=== PATIENT | male | born 1950 | race Hispanic/Latino ===

== ENCOUNTER 2016-09-07 14:34 | Emergency (ER) | payer BC, MEDICARE ==
[2016-09-07 15:31] VITALS: BP 136/86
[2016-09-07 15:55] LABS: Basophils % (Auto) 0.3 % (0.0-1.8); Eosinophils % (Auto) 4.4 % (0.0-4.3); Hematocrit 40.5 % (35.5-45.6); Hemoglobin 13.7 gm/dl (11.8-15.2); Mean Corpuscular HGB Conc 34 % (32-34); Mean Corpuscular Hemoglobin 30 pg (28-32); Mean Corpuscular Volume 89 fl (84-94); Platelet Count 188 K/mm3 (140-440); Red Blood Count 4.55 M/mm3 (3.65-5.03); White Blood Count 10.7 K/mm3 (4.5-11.0)
[2016-09-07 16:07] LABS: Creatine Kinase MB 1.8 ng/mL (0.0-4.0)
[2016-09-07 16:08] LABS: Anion Gap 18 mmol/L; BUN/Creatinine Ratio 13.33; Blood Urea Nitrogen 12 mg/dL (9-20); Calcium 9.1 mg/dL (8.4-10.2); Carbon Dioxide 25 mmol/L (22-30); Chloride 103.7 mmol/L (98-107); Creatine Kinase 78 units/L (55-170); Glucose 103 mg/dL (75-100); Potassium 4.7 mmol/L (3.6-5.0); Sodium 142 mmol/L (137-145)
[2016-09-07 16:30] LABS: Bilirubin,Urine NEG (Negative); Blood,Urine NEG (Negative); Ketones,Urine 20 mg/dL (Negative); Leukocyte Esterase,Urine NEG (Negative); Mucus,Urine FEW /HPF; Nitrite,Urine NEG (Negative); Urobilinogen,Urine < 2.0 mg/dL (<2.0); WBC,Urine < 1.0 /HPF (0.0-6.0)
== END 2016-09-07 23:45 | disposition left against medical advice (07) ==
LOC: ED 14:34
DX: R42 Dizziness and giddiness (principal); R11.2 Nausea with vomiting, unspecified; Z53.21 Procedure and treatment not carried out due to patient leaving prior to being seen by health care provider
CPT/HCPCS: 36415; 80048; 81001; 82550; 82553; 82962; 84484; 85025; 93005; 93010

== ENCOUNTER 2017-03-18 09:44 | Emergency (ER) | payer MEDICARE ==
[2017-03-18 10:44] VITALS: BP 112/77
--- NOTE | 2017-03-18 11:53 | XRay Report ---
RIGHT HIP, 2 views: History: Fall with right hip pain. The bony architecture is intact without evidence of fracture or dislocation. No significant soft tissue abnormality is seen. IMPRESSION: Normal right hip.
== END 2017-03-18 10:46 | disposition left against medical advice (07) ==
LOC: ED 09:44
DX: Z53.21 Procedure and treatment not carried out due to patient leaving prior to being seen by health care provider (principal)

== ENCOUNTER 2017-08-04 09:49 | Emergency (ER) | payer MEDICARE ==
[2017-08-04 09:59] VITALS: BP 140/89
[2017-08-04] MEDS ORDERED: ZOFRAN IV ONE (10:33)
[2017-08-04] MEDS ORDERED: MORPHINE IV ONE (10:33)
[2017-08-04] MEDS ORDERED: ceFAZolin 1 GM in NACL 0.9% 20 ML IV ONE (11:00)
[2017-08-04] MEDS ORDERED: XYLOCAINE 1% 20 mL ONE (11:55)
[2017-08-04] MEDS ORDERED: NACL 0.9% 500 ML IR ONE (12:00)
[2017-08-04] MEDS ORDERED: BOOSTRIX IM ONE (14:21)
--- NOTE | 2017-08-04 14:21 | Emergency Department Report ---
ED General Adult HPI - General Chief complaint: Wound/Laceration Stated complaint: HAND LACERATIONS Time Seen by Provider: 08/04/17 10:21 Source: patient Mode of arrival: Ambulatory Limitations: No Limitations - History of Present Illness Initial comments: This is a 67-year-old male that was walking and "tripped on a pine cone". He states he was carrying a ceramic vase. It broke into multiple pieces. He states that he pulled a fragment out of his right hand wound. He also told me that he used his mouth on the wound to stop the bleeding. His left hand did not have any oral contact. He does not report any loss of sensation or motor deficit. He did not have a syncopal episode. He complains of bilateral hand pain. He states he scraped his leg but he was able to ambulate and weight-bear without difficulty. He is not complaining of any substantial leg pain. He denies being on a blood thinner or an anticoagulant. -: Gradual Location: left, right, upper extremity Radiation: non-radiation Severity scale (0 -10): 4 Quality: aching Consistency: constant Improves with: none Worsens with: none Associated Symptoms: denies other symptoms - Related Data Previous Rx's Medication Instructions Recorded Last Taken Type HYDROcodone/APAP 10-325 [[place] 1 each PO Q4-6H PRN #20 tablet 09/04/13 Unknown Rx 10-325 mg TAB] Amoxicillin/K Clav Tab [Augmentin 1 tab PO Q12HR #10 tab 08/04/17 Unknown Rx 875 mg] HYDROcodone/APAP 5-325 [[place] 1 each PO Q4HR PRN #14 tablet 08/04/17 Unknown Rx 5/325] Allergies Allergy/AdvReac Type Severity Reaction Status Date / Time No Known Allergies Allergy Unverified 09/04/13 12:03 ED Review of Systems ROS: Stated complaint: HAND LACERATIONS Other details as noted in HPI Constitutional: other (mechanical fall only). denies: chills, fever Eyes: denies: eye pain, eye discharge, vision change ENT: denies: ear pain, throat pain Respiratory: denies: cough, shortness of breath, wheezing Cardiovascular: denies: chest pain, palpitations Endocrine: no symptoms reported Gastrointestinal: denies: abdominal pain, nausea, diarrhea Genitourinary: denies: urgency, dysuria Musculoskeletal: as per HPI. denies: back pain, joint swelling, arthralgia Skin: as per HPI. denies: rash, lesions Neurological: denies: headache, weakness, paresthesias Psychiatric: denies: anxiety, depression Hematological/Lymphatic: denies: easy bleeding, easy bruising ED Past Medical Hx - Past Medical History Previous Medical History?: No - Surgical History Past Surgical History?: No Additional Surgical History: tonsillectomy at age 4 - Social History Smoking Status: Never Smoker Substance Use Type: None - Medications Home Medications: Home Medications Medication Instructions Recorded Confirmed Last Taken Type HYDROcodone/APAP 10-325 [[place] 1 each PO Q4-6H PRN #20 tablet 09/04/13 Unknown Rx 10-325 mg TAB] Amoxicillin/K Clav Tab [Augmentin 1 tab PO Q12HR #10 tab 08/04/17 Unknown Rx 875 mg] HYDROcodone/APAP 5-325 [[place] 1 each PO Q4HR PRN #14 tablet 08/04/17 Unknown Rx 5/325] ED Physical Exam - General Limitations: No Limitations General appearance: alert, in no apparent distress - Head Head exam: Present: atraumatic, normocephalic - Eye Eye exam: Present: normal appearance. Absent: scleral icterus - ENT ENT exam: Present: mucous membranes moist - Neck Neck exam: Present: normal inspection. Absent: tenderness, meningismus - Respiratory Respiratory exam: Present: normal lung sounds bilaterally. Absent: respiratory distress - Cardiovascular Cardiovascular Exam: Present: regular rate, normal rhythm. Absent: systolic murmur, diastolic murmur, rubs, gallop - GI/Abdominal GI/Abdominal exam: Present: soft, normal bowel sounds. Absent: distended, tenderness, guarding, rebound, rigid - Rectal Rectal exam: Present: deferred - Extremities Exam Extremities exam: Present: other (the patient has some superficial linear abrasions of his pretibial surface on the left. There is no penetrating injury. There is no deformity. The leg is essentially nontender with full range of motion. The right hand displays a palmar lack approximately in the crease which is about 3-4 cm in length. It is irregular. No foreign body was found. The right hand has 3 lacerations. The first is a laceration avulsion of the distal thumb pad. The avulsed tissue is about 1 cm with a laceration of about 1 cm.Ears a laceration of the proximal phalanx of 2 cm and irregular in nature also on the palmar aspect. At the base of the thumb/plantar tenderness there is a deeper laceration which involves subcutaneous fat only. It is about 6 cm in length. Finally there is a 3 cm laceration of the palmar crease also just into the subcutaneous fat. All wounds were explored and no foreign body was found. Neurovascular exam was intact.) - Back Exam Back exam: Present: normal inspection - Neurological Exam Neurological exam: Present: alert, oriented X3, CN II-XII intact. Absent: motor sensory deficit - Psychiatric Psychiatric exam: Present: normal affect, normal mood - Skin Skin exam: Present: warm, dry, intact, normal color. Absent: rash ED Course Vital Signs 08/04/17 09:56 Temperature 99.0 F Pulse Rate 89 Respiratory 20 Rate Blood Pressure 140/89 O2 Sat by Pulse 94 Oximetry - Reevaluation(s) Reevaluation #1: Patient was given Ancef. The patient is given morphine and Zofran. The wounds were cleansed. The one that had oral contact was profusely irrigated and loosely closed with one stitch (right hand). Laceration to the base of the thumb required horizontal mattress and interrupted closure. No subcutaneous suturing was necessitated. The approximation was achieved. Procedure was well tolerated. 08/04/17 14:21 08/04/17 14:22 Reevaluation #2: Patient has been counseled as to the higher risk of infection due to his oral contact of his right hand wound. This was only closed with 1 stitch to allow drainage and hemostasis. Patient will be placed on Augmentin. He is instructed to elevate his hands and avoid any stress on the wounds. He will follow up with the orthopedist within the next 24-48 hours for recheck of his wounds. He received a tetanus vaccine. 08/04/17 14:26 ED Medical Decision Making - Radiology Data interpreted by me: X-rays of the hands showed no fracture or foreign body. Critical care attestation.: If time is entered above; I have spent that time in minutes in the direct care of this critically ill patient, excluding procedure time. ED Disposition Clinical Impression: Laceration of hand Qualifiers: Encounter type: sequela Foreign body presence: without foreign body Laterality : unspecified laterality Qualified Code(s): S61.419S - Laceration without foreign body of unspecified hand, sequela Disposition: DC-01 TO HOME OR SELFCARE Is pt being admited?: No Does the pt Need Aspirin: No Condition: Stable Instructions: Suture Care (ED), Laceration (ED), Soft Tissue Foreign Body (ED) , Finger Laceration (ED) Additional Instructions: Elevate hands when possible. I would like him to follow up with Dr. David who is an orthopedic doctor in the next 1-2 days. If you're having any problem he may return to the emergency department use the sling for the left hand. She removal will be at some over between 10 and 14 days for the major laceration. The minor lacerations may be removed earlier. See Dr. David for this. Prescriptions: Amoxicillin/K Clav Tab [Augmentin 875 mg] 1 tab PO Q12HR #10 tab HYDROcodone/APAP 5-325 [[place] 5/325] 1 each PO Q4HR PRN #14 tablet PRN Reason: Pain Referrals: PRIMARY CAREMD [Primary Care Provider] - 3-5 Days AMRIT DAVID MD [Staff Physician] - 2-3 Days Time of Disposition: 14:32
--- NOTE | 2017-08-06 12:57 | XRay Report ---
BILATERAL HANDS, 3 VIEWS: History: Laceration, pain. Findings: Osteopenia is evident. There is a complex laceration involving the left thumb with overlying bandage. No evidence for fracture or radiopaque foreign body on x-ray. No erosive joint pathology. Impression: Complex soft tissue laceration of the left thumb. No radiopaque foreign body or fracture is identified.
== END 2017-08-04 15:37 | disposition home or self-care (01) ==
LOC: ED 09:49
DX: S61.012A Laceration without foreign body of left thumb without damage to nail, initial encounter (principal); S61.411A Laceration without foreign body of right hand, initial encounter; W45.8XXA Other foreign body or object entering through skin, initial encounter; Y93.89 Activity, other specified; Y92.89 Other specified places as the place of occurrence of the external cause; Y99.8 Other external cause status
CPT/HCPCS: 12002; 12032; 73120; 90471; 90715; 96365; 96375; 99284; J0690; J2270; J2405

== ENCOUNTER 2020-04-17 18:29 | Emergency (ER) | payer MEDICARE ==
--- NOTE | 2020-04-17 19:16 | Emergency Department Report ---
Chief Complaint: Fever Stated Complaint: FEVER Time Seen by Provider: 04/17/20 19:02 - HPI History of Present Illness: pt is a 69 yo male who states he got a COVID 19 vaccine last week he states he has been monitoring his temperature daily with a forehead scanner he states that the scanner read 101 today when he was routinely checking it he denies feeling like he had a fever no body aches no chills no cough no SOB no abd pain no n/v/d no sore throat no ear pain no CP PMHx none no allergies to meds non smoker no sick contacts no recent travel on repeat vitals 86 HR 96% RA temperature 98.6 degrees Fahrenheit On exam: Non toxic appearing, no acute distress atraumatic, normocephalic normal appearance of the eyes, PERRL, EOMI, no periorbital edema or ecchymosis moist mucus membranes regular heart rate and rhythm, no gallops, no rubs, no murmurs breath sounds are clear bilaterally, no w/r/r, no stridor, no exercise, no excessive muscle use A&O x4, no focal neuro deficit skin is warm, dry, intact Patient is presenting for a elevated temperature on a forehead scanner that he used routinely to check his temperature after receiving a COVID-19 vaccine a week ago He has no other symptoms at all, he states he "feels fine currently" Forehead scanner can be unreliable Given that he is completely asymptomatic, does not warrant further emergent work-up at this time Discussed the importance of primary care reevaluation within the next 2 to 3 days Had a very long conversation with patient and discussed very strict return precautions, patient verbalized understanding Discussed case with Dr. Lowry, ER attending who agrees with plan Medical screening examination performed and there is no threat to life or limb at this time - Exam Vital Signs: Vital Signs 04/17/20 18:41 Temperature 98.7 F Pulse Rate 92 H Respiratory 18 Rate Blood Pressure 131/89 O2 Sat by Pulse 94 Oximetry MSE screening note: Focused history and physical exam performed. Due to findings the following was ordered: ED Disposition for MSE Clinical Impression: Encounter for medical screening examination Disposition: Z MED SCREENING EXAM-LEFT Is pt being admited?: No Does the pt Need Aspirin: No Condition: Stable Additional Instructions: Please continue to monitor your symptoms at home. Return to the emergency room immediately if you began experiencing any new or worsening symptoms including but not limited to frequent cough, chest pain, shortness of breath, abdominal pain, nausea, vomiting, diarrhea, high fever, chills, weakness, severe fatigue, etc. Please follow-up with your primary care doctor for reexamination. Referrals: your, primary care doctor [Other] - 2-3 Days Time of Disposition: 19:14 Print Language: NIGERIEN
[2020-04-17 19:37] VITALS: BP 130/78
== END 2020-04-17 19:35 | disposition left against medical advice (07) ==
LOC: ED 18:29
DX: R50.9 Fever, unspecified (principal); Z00.00 Encounter for general adult medical examination without abnormal findings; Z53.21 Procedure and treatment not carried out due to patient leaving prior to being seen by health care provider

== ENCOUNTER 2021-06-18 10:47 | Emergency (ER) | payer MEDICARE ==
[2021-06-18] MEDS ORDERED: KETOROLAC 10 MG TAB PO ONE (14:31)
[2021-06-18] MEDS ORDERED: AMOXICILLIN/K CLAV 875/125MG TAB PO ONE (14:31)
[2021-06-18] MEDS ORDERED: TETANUS,DIPH,PERTUSS(ACELL) VACCINE 0.5 ML SYRINGE IM ONE (14:31)
--- NOTE | 2021-06-18 15:36 | Emergency Department Report ---
ED Animal Bite HPI - General Chief Complaint: Animal Bite Stated Complaint: DOG BITE Time Seen by Provider: 06/18/21 13:47 Source: patient Mode of arrival: Ambulatory Limitations: No Limitations - History of Present Illness Initial Comments: 71-year-old white male with no past medical history presents to the emergency department after dog bite. He states that he was jogging around his neighborhood when 2 dogs came out of nowhere and 1 bit him to his left lower extremity. He states that he was not familiar with the dog and did not know who the chyron operator's were. He presented to the emergency department for further evaluation and management. MD Complaint: animal bite -: Sudden Left: Leg Animal: dog Animal Control Notified: No Description: unknown animal, immunizations unknown, appeared well Mechanism: bite Pain Description: dull Severity scale (0 -10): 2 Context: unprovoked Associated Symptoms: bleeding. denies: discharge from wound, fever, loss of consciousness, diaphoresis, shortness of breath - Related Data Patient Tetanus UTD: No Previous Rx's Medication Instructions Recorded Last Taken Type HYDROcodone/APAP 10-325 [[place] 1 each PO Q4-6H PRN #20 tablet 09/04/13 Unknown Rx 10-325 mg TAB] Amoxicillin/K Clav Tab [Augmentin 1 tab PO Q12HR #10 tab 08/04/17 Unknown Rx 875 mg] HYDROcodone/APAP 5-325 [[place] 1 each PO Q4HR PRN #14 tablet 08/04/17 Unknown Rx 5/325] Amoxicillin/K Clav Tab [Augmentin 1 tab PO Q12HR #14 tab 06/18/21 Unknown Rx 875 mg] Ibuprofen [Motrin 600 MG tab] 600 mg PO TID PRN #30 tab 06/18/21 Unknown Rx Allergies Allergy/AdvReac Type Severity Reaction Status Date / Time No Known Allergies Allergy Unverified 09/04/13 12:03 ED Review of Systems ROS: Stated complaint: DOG BITE Other details as noted in HPI Comment: All other systems reviewed and negative Constitutional: denies: chills, fever Respiratory: denies: shortness of breath, SOB with exertion, SOB at rest Cardiovascular: denies: chest pain, palpitations Gastrointestinal: denies: abdominal pain Musculoskeletal: denies: back pain Neurological: denies: headache ED Past Medical Hx - Surgical History Additional Surgical History: tonsillectomy at age 4 - Social History Smoking Status: Never Smoker Substance Use Type: None - Medications Home Medications: Home Medications Medication Instructions Recorded Confirmed Last Taken Type HYDROcodone/APAP 10-325 [[place] 1 each PO Q4-6H PRN #20 tablet 09/04/13 Unknown Rx 10-325 mg TAB] Amoxicillin/K Clav Tab [Augmentin 1 tab PO Q12HR #10 tab 08/04/17 Unknown Rx 875 mg] HYDROcodone/APAP 5-325 [[place] 1 each PO Q4HR PRN #14 tablet 08/04/17 Unknown Rx 5/325] Amoxicillin/K Clav Tab [Augmentin 1 tab PO Q12HR #14 tab 06/18/21 Unknown Rx 875 mg] Ibuprofen [Motrin 600 MG tab] 600 mg PO TID PRN #30 tab 06/18/21 Unknown Rx ED Physical Exam - General Limitations: No Limitations General appearance: alert, in no apparent distress - Head Head exam: Present: atraumatic, normocephalic - Eye Eye exam: Present: normal appearance. Absent: conjunctival injection - Neck Neck exam: Present: normal inspection - Respiratory Respiratory exam: Absent: respiratory distress - Cardiovascular Cardiovascular Exam: Present: regular rate - GI/Abdominal GI/Abdominal exam: Absent: distended - Expanded Lower Extremity Exam Left Lower Leg exam: Present: tenderness Neuro vascular tendon exam: Present: no vascular compromise. Absent: pulse deficit, abnormal cap refill, extremity cold to touch, pallor Gait: Positive: observed and normal 1 - Noted to have incisor huff x2. No bleeding noted but area tender to touch. - Back Exam Back exam: Present: normal inspection - Neurological Exam Neurological exam: Present: alert, oriented X3 - Psychiatric Psychiatric exam: Present: normal affect, normal mood - Skin Skin exam: Present: warm, dry, normal color ED Course Vital Signs 06/18/21 06/18/21 13:38 16:38 Temperature 98.7 F 98.7 F Pulse Rate 85 80 Respiratory 18 16 Rate Blood Pressure 146/98 140/96 [Right] O2 Sat by Pulse 98 99 Oximetry Critical care attestation.: If time is entered above; I have spent that time in minutes in the direct care of this critically ill patient, excluding procedure time. ED Disposition Clinical Impression: Dog bite of left lower leg Qualifiers: Encounter type: initial encounter Qualified Code(s): S81.852A - Open bite, left lower leg, initial encounter Disposition: HOME / SELF CARE / HOMELESS Is pt being admited?: No Does the pt Need Aspirin: No Condition: Stable Instructions: Animal Bite, Adult, [id number], Rabies Immune Globulin, human R IG solution for injection, Wound Care, Adult, Rabies Vaccine suspension for injection Additional Instructions: Take medications as prescribed. Notify animal control of dog bite so they can attempt to locate animal. You had your initial dose of the rabies vaccine, and you need to follow-up for the next 3 doses in 3 days (06/21), 7 days (06/25), and 14 days (07/02). You can follow-up with your primary care provider or at [facility] for follow-up doses. Return to the emergency department for any concerning symptoms. Prescriptions: Amoxicillin/K Clav Tab [Augmentin 875 mg] 1 tab PO Q12HR #14 tab Ibuprofen [Motrin 600 MG tab] 600 mg PO TID PRN #30 tab PRN Reason: Pain , Severe (7-10) Referrals: ALPA RANDALL MD [Referring] - 3-5 Days [facility] [Outside] - 3-5 Days Time of Disposition: 15:36 ED Lower Extremity MDM - Medical Decision Making If Plantar Puncture Wound, Discussed with Patient: Risk of Infection 71-year-old white male with no past medical history presents to the emergency de partment after dog bite. He states that he was jogging around his neighborhood when 2 dogs came out of nowhere and 1 bit him to his left lower extremity. He states that he was not familiar with the dog and did not know who the chyron operator's were. He presented to the emergency department for further evaluation and management. Patient's Tdap was updated because he stated that he was not sure if he really had the shot in 2018. Patient was started on Augmentin and will be DC'd home on 7-day course twice daily. He was advised to be sure to finish the entire bottle of antibiotics. Patient stated that he was unsure of which house the dogs came from or if they were just wild, so he was very concerned about the risk of rabies, so patient was started on rabies series to include first rabies vaccine along with immunoglobulin weight-based. He was given information on when to have next shots and advised to follow-up with primary care provider or health department for the rest of his rabies vaccinations. He was advised to monitor for signs of infection, keep wound clean and dry, and follow-up in the emergency department if worsening symptoms. He verbalized understanding of and agreement with plan of care.
[2021-06-18] MEDS ORDERED: RABIES VACCINE, HUMAN DIPLOID/PF 2.5 UNIT/ML VIAL IM ONE (16:00)
[2021-06-18] MEDS ORDERED: RABIES IMMUNE GLOBULIN P/F 300 UNIT/ML INJ 5 ML IM ONE ×2 (16:00)
[2021-06-18 16:39] VITALS: BP 140/96
== END 2021-06-18 16:38 | disposition home or self-care (01) ==
LOC: ED 10:47
DX: S81.852A Open bite, left lower leg, initial encounter (principal); W54.0XXA Bitten by dog, initial encounter; Y93.89 Activity, other specified; Y92.89 Other specified places as the place of occurrence of the external cause; Y99.8 Other external cause status
CPT/HCPCS: 90375; 90471; 90472; 90675; 90715; 96372; 99282

== ENCOUNTER 2021-06-21 07:28 | Emergency (ER) | payer MEDICARE ==
[2021-06-21 07:45] VITALS: BP 122/88
--- NOTE | 2021-06-21 08:30 | Emergency Department Report ---
ED Recheck HPI - General Chief Complaint: Medical Clearance Stated Complaint: RABIES SHOT Time Seen by Provider: 06/21/21 08:24 Source: patient Mode of arrival: Ambulatory Limitations: No Limitations - History of Present Illness Initial Comments: Patient is a very pleasant 71-year-old that comes to the emergency room today for his Rabies #2 of 4 vaccine. He reports that the health department is out of the vaccine colon and we told him if he had a problem getting it to come back to the ER. He has no new complaints. Patient was initially here on 06-18 after sustaining a dog bite while jogging in his neighborhood. He says the dogs jumped out of nowhere and bit his leg. They are not dog is known to him or his neighbors. He is taking his antibiotics. And his wound is healing well. MD Complaint: other - Related Data Previous Rx's Medication Instructions Recorded Last Taken Type Amoxicillin/K Clav Tab [Augmentin 1 tab PO Q12HR #14 tab 06/18/21 Unknown Rx 875 mg] Ibuprofen [Motrin 600 MG tab] 600 mg PO TID PRN #30 tab 06/18/21 Unknown Rx Allergies Allergy/AdvReac Type Severity Reaction Status Date / Time No Known Allergies Allergy Unverified 09/04/13 12:03 ED Review of Systems ROS: Stated complaint: RABIES SHOT Other details as noted in HPI Comment: All other systems reviewed and negative ED Past Medical Hx - Past Medical History Previous Medical History?: No - Surgical History Past Surgical History?: Yes Additional Surgical History: tonsillectomy at age 4, left hand surgery - Family History Family history: no significant - Social History Smoking Status: Former Smoker Substance Use Type: None - Medications Home Medications: Home Medications Medication Instructions Recorded Confirmed Last Taken Type Amoxicillin/K Clav Tab [Augmentin 1 tab PO Q12HR #14 tab 06/18/21 Unknown Rx 875 mg] Ibuprofen [Motrin 600 MG tab] 600 mg PO TID PRN #30 tab 06/18/21 Unknown Rx ED Physical Exam - General Limitations: No Limitations General appearance: alert, in no apparent distress - Head Head exam: Present: atraumatic, normocephalic - Eye Eye exam: Present: normal appearance - ENT ENT exam: Present: mucous membranes moist - Neck Neck exam: Present: normal inspection - Respiratory Respiratory exam: Present: normal lung sounds bilaterally. Absent: respiratory distress - Cardiovascular Cardiovascular Exam: Present: regular rate, normal rhythm. Absent: systolic murmur, diastolic murmur, rubs, gallop - GI/Abdominal GI/Abdominal exam: Present: soft, normal bowel sounds - Rectal Rectal exam: Present: deferred - Extremities Exam Extremities exam: Present: normal inspection - Back Exam Back exam: Present: normal inspection - Neurological Exam Neurological exam: Present: alert, oriented X3 - Psychiatric Psychiatric exam: Present: normal affect, normal mood - Skin Skin exam: Present: warm, dry, intact, normal color. Absent: rash ED Course Vital Signs 06/21/21 06/21/21 07:42 07:45 Pulse Rate 78 78 Respiratory 15 15 Rate Blood Pressure 122/88 Blood Pressure 122/88 [Right] O2 Sat by Pulse 97 97 Oximetry - Reevaluation(s) Reevaluation #1: 06/21/21 10:07 Patient checked into the ER at 830 and was discharged by 10:00 and he was complaining about the weight. He asked me how to shorten it for his next encounter. I told him to contact the [facility] that they may have a shorter wait. ED Recheck MDM - Core Measures Measure Exclusions: not indicated - Medical Decision Making Rabies injection #2 provided after discussed with pharmacist. Vital Signs 06/21/21 06/21/21 07:42 07:45 Pulse Rate 78 78 Respiratory 15 15 Rate Blood Pressure 122/88 Blood Pressure 122/88 [Right] O2 Sat by Pulse 97 97 Oximetry He is due for his next vaccine on 06-25 and then on 07-02. Patient being discharged home with discharge plan of care including contacting the [facility] for rabies #3 vaccine. Patient verbalizes understanding of plan of care. Critical care attestation.: If time is entered above; I have spent that time in minutes in the direct care of this critically ill patient, excluding procedure time. 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 If they do not have it then return to the emergency room. Referrals: GRAEME DONATO MD [Staff Physician] - 3-5 Days Time of Disposition: 08:30
[2021-06-21] MEDS ORDERED: RABIES VACCINE, HUMAN DIPLOID/PF 2.5 UNIT/ML VIAL IM ONE (09:30)
== END 2021-06-21 10:00 | disposition home or self-care (01) ==
LOC: ED 07:28
DX: S81.852A Open bite, left lower leg, initial encounter (principal); Z79.899 Other long term (current) drug therapy; W54.0XXA Bitten by dog, initial encounter; Y93.89 Activity, other specified; Y92.89 Other specified places as the place of occurrence of the external cause; Y99.8 Other external cause status
CPT/HCPCS: 90471; 90675; 99282

== ENCOUNTER 2021-06-25 07:55 | Emergency (ER) | payer MEDICARE ==
[2021-06-25 08:14] VITALS: BP 148/88
[2021-06-25] MEDS ORDERED: RABIES IMMUNE GLOBULIN P/F 300 UNIT/ML INJ 5 ML IM ONE (08:49)
--- NOTE | 2021-06-25 09:52 | Emergency Department Report ---
ED Recheck HPI - General Chief Complaint: Animal Bite Stated Complaint: 3RD RABIES SHOT Time Seen by Provider: 06/25/21 08:48 Source: patient Mode of arrival: Ambulatory Limitations: No Limitations - History of Present Illness Initial Comments: Patient is a 71-year-old male that returns to the emergency room for his third rabies shot. Returns Today for: rabies shot Symptoms Since Prior Visit: no new symptoms Associated Symptoms: none - Related Data Allergies Allergy/AdvReac Type Severity Reaction Status Date / Time No Known Allergies Allergy Verified 06/25/21 10:27 ED Review of Systems ROS: Stated complaint: 3RD RABIES SHOT Other details as noted in HPI Comment: All other systems reviewed and negative ED Past Medical Hx - Past Medical History Previous Medical History?: Yes - Surgical History Past Surgical History?: Yes Additional Surgical History: tonsillectomy at age 4, left hand surgery - Family History Family history: no significant - Social History Smoking Status: Former Smoker Substance Use Type: None ED Physical Exam - General Limitations: No Limitations General appearance: alert, in no apparent distress - Head Head exam: Present: atraumatic, normocephalic - Eye Eye exam: Present: normal appearance - ENT ENT exam: Present: mucous membranes moist - Neck Neck exam: Present: normal inspection - Respiratory Respiratory exam: Present: normal lung sounds bilaterally. Absent: respiratory distress - Cardiovascular Cardiovascular Exam: Present: regular rate, normal rhythm. Absent: systolic murmur, diastolic murmur, rubs, gallop - GI/Abdominal GI/Abdominal exam: Present: soft, normal bowel sounds - Rectal Rectal exam: Present: deferred - Extremities Exam Extremities exam: Present: normal inspection - Back Exam Back exam: Present: normal inspection - Neurological Exam Neurological exam: Present: alert, oriented X3 - Psychiatric Psychiatric exam: Present: normal affect, normal mood - Skin Skin exam: Present: warm, dry, intact, normal color. Absent: rash ED Course Vital Signs 06/25/21 06/25/21 08:11 10:59 Temperature 98.3 F 98.3 F Pulse Rate 68 68 Respiratory 17 16 Rate Blood Pressure 148/88 148/88 [Left] O2 Sat by Pulse 97 97 Oximetry - Reevaluation(s) Reevaluation #1: 06/25/21 13:52 I know for a fact that the patient on his second encounter was told that he needed to use the [facility]. I remember this distinctly because he was complaining about his weight. I had explained to him that he had a nonmedical emergency and that he would have to wait at any time, to the emergency room for a rabies shot. I encouraged him then to call the [facility] and see if they had available vaccine. I am not sure of his first encounter what he was given. I did review the EMR and it does not specify that he was given [place] in [facility] information. ED Recheck MDM - Core Measures Measure Exclusions: not indicated - Medical Decision Making Third rabies shot has been administered. Patient has been again asked to use the health department for his final injection. Ms. Swanson was involved in the conversations. Patient verbalizes understanding. Patient being discharged home with discharge plan of care which he verbalizes understanding of. Vital Signs (72 hours) 06/25/21 06/25/21 08:11 10:59 Temperature 98.3 F 98.3 F Pulse Rate 68 68 Respiratory 17 16 Rate Blood Pressure 148/88 148/88 [Left] O2 Sat by Pulse 97 97 Oximetry Critical care attestation.: If time is entered above; I have spent that time in minutes in the direct care of this critically ill patient, excluding procedure time. ED Disposition Clinical Impression: Dog bite of left lower leg Qualifiers: Encounter type: subsequent encounter Qualified Code(s): S81.852D - Open bite, left lower leg, subsequent encounter; W54.0XXD - Bitten by dog, subsequent encounter Rabies vaccine poisoning Qualifiers: Encounter type: subsequent encounter Disposition: 01 HOME / SELF CARE / HOMELESS Is pt being admited?: No Does the pt Need Aspirin: No Condition: Stable Referrals: NEHAL ZAVALETA MD [Primary Care Provider] - 3-5 Days Time of Disposition: 09:51
[2021-06-25] MEDS ORDERED: RABIES VACCINE, HUMAN DIPLOID/PF 2.5 UNIT/ML VIAL IM ONE (11:00)
== END 2021-06-25 10:59 | disposition home or self-care (01) ==
LOC: ED 07:55
DX: S81.852D Open bite, left lower leg, subsequent encounter (principal); W54.0XXD Bitten by dog, subsequent encounter; Z29.14 Encounter for prophylactic rabies immune globulin; Z87.891 Personal history of nicotine dependence
CPT/HCPCS: 90471; 90675; 99282